=== PATIENT | male | born 1985 | race Caucasian/White ===

== ENCOUNTER 2021-02-16 08:56 | Emergency (ER) | payer OTHER ==
[2021-02-16 09:38] LABS: BILIRUBIN NEGATIVE (NEGATIVE); BLOOD 2+ Ery/uL (NEGATIVE); CLARITY CLEAR (CLEAR); COLOR YELLOW (YELLOW); GLUCOSE (U) NORMAL (NORMAL); LEUKOCYTES NEGATIVE Leu/uL (NEGATIVE); NITRITE NEGATIVE (NEGATIVE); PROTEIN NEGATIVE (NEGATIVE); UROBILINOGEN 0.2 mg/dL (0.2-1.0); pH 6.5 (5.0-9.0)
[2021-02-16 09:47] LABS: BACTERIA TRACE
[2021-02-16 10:13] LABS: BASOPHIL 0.3 % (0-2); EOSINOPHIL 0.8 % (0-5); HCT 46.8 % (42.0-52.0); HGB 16.1 g/dl (13.2-18.0); LYMPHOCYTE 8.1 % (15-48); MCH 29.5 pg (25.0-31.0); MCHC 34.4 g/dL (32.0-36.0); MCV 85.9 fL (78.0-100.0); MONOCYTE 4.9 % (0-12); MPV 9.9 fL (6.0-9.5); NEUTROPHIL 85.4 % (41-80); NRBC 0; PLT 328 K/uL (150-400); RBC 5.45 M/uL (4.70-6.00); RDW 12.1 % (11.5-14.0); WBC 14.4 K/uL (4.0-10.5)
[2021-02-16 10:38] LABS: ALBUMIN 4.2 g/dL (3.4-5.0); BILIRUBIN - TOTAL 0.5 mg/dL (0.2-1.0); BUN/CREAT RATIO (CALC) 11.9 RATIO; CREATININE 1.09 mg/dL (0.67-1.17); GLOBULIN (CALCULATION) 3.4 g/dL; POTASSIUM 3.8 mmol/L (3.5-5.1); TOTAL PROTEIN 7.6 g/dL (6.4-8.2)
[2021-02-16] MEDS ORDERED: FLOMAX0.4 MG PO (11:37)
[2021-02-16] MEDS ORDERED: PERCOCET 5-3251 EACH PO (11:37)
[2021-02-16] MEDS ORDERED: NAPROXEN500 MG PO (11:37)
[2021-02-16] MEDS ORDERED: ONDANSETRON ODT4 MG PO (11:37)
== END 2021-02-16 12:02 | disposition home or self-care (01) ==
LOC: FER 08:56
PROVIDERS: Internal Medicine
DX: N13.2 Hydronephrosis with renal and ureteral calculous obstruction (principal); I10 Essential (primary) hypertension; Z87.891 Personal history of nicotine dependence; Z79.899 Other long term (current) drug therapy
CPT/HCPCS: 36415; 80053; 81001; 83690; 85025; J1170; J1885; J2405

== ENCOUNTER 2021-11-27 09:36 | Emergency (ER) | payer OTHER ==
[~2021-11-27 09:36] MED LIST: FLOMAX0.4 MG PO; NAPROXEN500 MG PO; ONDANSETRON ODT4 MG PO; PERCOCET 5-3251 EACH PO
[2021-11-27] MEDS ORDERED: NAPROXEN500 MG PO (10:56)
[2021-11-27] MEDS ORDERED: CYCLOBENZAPRINE10 MG PO (10:56)
== END 2021-11-27 11:26 | disposition home or self-care (01) ==
LOC: FER 09:36
DX: M54.50 Low back pain, unspecified (principal); I10 Essential (primary) hypertension
CPT/HCPCS: 72110; J1885

== ENCOUNTER 2021-12-17 21:10 | Emergency (ER) | payer OTHER ==
[~2021-12-17 21:10] MED LIST changes: +CYCLOBENZAPRINE10 MG PO
[2021-12-17] MEDS ORDERED: PERCOCET 5-3251 EACH PO (22:10)
[2021-12-17] MEDS ORDERED: MEDROL 4MG DOSEP4 MG PO (22:10)
[2021-12-17] MEDS ORDERED: BACTRIM DS TAB1 EACH PO (22:10)
== END 2021-12-17 22:30 | disposition home or self-care (01) ==
LOC: FER 21:10
DX: S60.362A Insect bite (nonvenomous) of left thumb, initial encounter (principal); L03.012 Cellulitis of left finger; I10 Essential (primary) hypertension; Z79.899 Other long term (current) drug therapy; W57.XXXA Bitten or stung by nonvenomous insect and other nonvenomous arthropods, initial encounter
CPT/HCPCS: 96372; 99283; J0696; J1100